=== PATIENT | male | born 1950 | race Caucasian/White ===

== ENCOUNTER 2022-04-20 08:17 | Observation (INO) | payer OTHER, SELFPAY ==
[2022-04-20] VITALS (13 sets, daily range): BP systolic 125–172; BP diastolic 60–86; PULSE 68–91; RESP 13–24; TEMP 36.2–36.7; O2SAT 94–98; BMI 30.4
[2022-04-20] MEDS: diphenhydrAMINE 50 MG/ML VIAL IV (08:25)
[2022-04-20] MEDS: methylPREDNISolone 125 MG/2 ML VIAL IV (08:25)
[2022-04-20] MEDS: EPINEPHrine 1 MG/ML 0.5 MG IM ×2 (08:25→09:44)
--- NOTE | 2022-04-20 08:39 | ED_ITS ---
HPI - Allergic Reaction General Chief complaint: Allergic Reaction Stated complaint: allergic reaction /swollen throat Time Seen by Provider: 04/20/22 08:36 Source: patient and family Mode of arrival: Ambulatory History of Present Illness HPI narrative: Patient is a 72-year-old male with no past medical history presenting today with allergic reaction. He says last night he felt like his vocal cords were swollen had a hard time breathing and came into the ED this morning. His lips are swollen tongue is not swollen. He feels like his voice is muffled. He does not have a rash not on any Zackary inhibitors. Patient states that this happened to him earlier this month he went to a walk-in clinic on April 08. He was previously started on azithromycin for a chest cold so he thought that might be the cause of his allergic reaction. He was given epi prednisone famotidine his antibiotic was changed to doxycycline. He finished all medications yesterday and had this reaction last night. Related Data Home Medications Medication Instructions Recorded Confirmed Adult Multivitamin with Iron 1 tab PO DAILY 04/20/22 04/20/22 aspirin 81 mg tablet 81 mg PO DAILY 04/20/22 04/20/22 coenzyme Q10 100 mg-vitamin E 20 1 cap PO DAILY 04/20/22 04/20/22 mg-vitamin E mixed 15 mg capsule lansoprazole 30 mg capsule,delayed 30 mg PO DAILY 04/20/22 04/20/22 release terazosin 2 mg capsule 4 mg PO BEDTIME 04/20/22 04/20/22 Allergies Allergy/AdvReac Type Severity Reaction Status Date / Time azithromycin Allergy Severe Swelling Verified 04/20/22 09:17 of Lip/Tongue/Throat lisinopril Allergy Verified 04/20/22 17:25 Review of Systems Review of Systems Narrative: GENERAL: Denies chills, fatigue, malaise, fever, sweats, travel HEENT: See HPI RESPIRATORY: Denies dyspnea, cough, wheezing, hemoptysis, sputum. CARDIOVASCULAR: Denies chest pain, palpitations, orthopnea, edema GASTROINTESTINAL: Denies nausea, vomiting, abdominal pain, diarrhea, constipation, melena. : Denies dysuria, frequency, incontinence, hematuria, urinary retention, flank pain. MUSCULOSKELETAL: Denies weakness, joint pain, or bony pain SKIN: No rash, no erythema, no pruritus NEUROLOGIC: Denies weakness, dizziness, headache, numbness, change in speech, confusion PSYCHIATRIC: No concerning psychosocial issues. 12 point review of systems is negative except for those stated above and HPI Patient History Social History household members: spouse Smoking Status: Never smoker Exam Initial Vital Signs Initial Vital Signs: Vital Signs Temperature 98.1 F 04/20/22 08:27 Pulse Rate 88 04/20/22 08:27 Respiratory Rate 20 04/20/22 08:27 Blood Pressure 139/80 04/20/22 08:27 Pulse Oximetry 95 04/20/22 08:27 Oxygen Delivery Method 04/20/22 08:27 GENERAL: Alert pleasant 72-year-old male mild distress HEENT: Head atraumatic,EOMI, pupils reactive, face symmetric, lip swollen PHARYNX: Muffled voice no uvula swelling no hard palate swelling no uvula deviation airway patent managing own secretions CARDIOVASCULAR: Regular rate and rhythm without murmurs, rubs or gallops. RESPIRATORY: Breath sounds equal bilaterally, no wheezes rales or rhonchi. ABDOMEN: Soft, nontender. Normoactive bowel sounds all 4 quadrants. No guarding or rebound. EXTREMITIES: Normal range of motion, no clubbing or edema. Neurovascularly intact NEUROLOGICAL: Alert and oriented x4. SKIN: Warm, dry, no laceration, no petechiae, no rashes or lesions. Course Orders Ordered: ED Orders 04/20/22 13:26 COVID19 -Nasal RAPID/Pre-Proc Stat Acetaminophen (Acetaminophen 325 Mg Tablet) 650 mg PO Q6HR PRN PRN Reason: Fever/Mild Pain (1-3) Diphenhydramine HCl (Diphenhydramine 50 Mg/Ml Vial) 50 mg IV Q6HR PRN PRN Reason: Angioedema Discontinued Medications Diphenhydramine HCl (Diphenhydramine 50 Mg/Ml Vial) 50 mg IV NOW ONE Stop: 04/20/22 08:32 Last Admin: 04/20/22 08:25 Dose: 50 mg Documented By: TODD Epinephrine HCl (Epinephrine 1 Mg/Ml) 0.5 mg IM NOW ONE Stop: 04/20/22 08:36 Last Admin: 04/20/22 08:25 Dose: 0.5 mg Documented By: TODD Epinephrine HCl (Epinephrine 1 Mg/Ml) 0.5 mg IM NOW ONE Stop: 04/20/22 09:22 Last Admin: 04/20/22 09:44 Dose: 0.5 mg Documented By: TODD Famotidine (Famotidine 20 Mg/2 Ml Vial) 20 mg IV NOW UMA Famotidine (Famotidine 20 Mg/2 Ml Vial) 20 mg IV NOW ONE Stop: 04/20/22 08:53 Last Admin: 04/20/22 08:53 Dose: 20 mg Documented By: TODD Tranexamic Acid 1,000 mg/ (Sodium Chloride) 100 mls @ 200 mls/hr IV NOW ONE Stop: 04/20/22 12:39 Last Infusion: 04/20/22 13:11 Dose: 0 mls/hr Documented By: Admin: 04/20/22 12:25 Dose: 200 mls/hr Documented By: TODD Methylprednisolone (Methylprednisolone 125 Mg/2 Ml Vial) 125 mg IV NOW ONE Stop: 04/20/22 08:32 Last Admin: 04/20/22 08:25 Dose: 125 mg Documented By: TODD Vital Signs Vital signs: Vital Signs - 8 hr 04/20/22 10:30 04/20/22 10:30 04/20/22 11:00 Pulse Rate 91 H Respiratory Rate 24 Blood Pressure 152/70 H 147/65 H Pulse Oximetry 95 04/20/22 11:00 04/20/22 11:30 04/20/22 11:30 Pulse Rate 78 77 Respiratory Rate 13 13 Blood Pressure 148/69 H Pulse Oximetry 94 94 04/20/22 12:00 04/20/22 12:00 04/20/22 12:30 Pulse Rate 79 Respiratory Rate 17 Blood Pressure 152/74 H 158/80 H Pulse Oximetry 95 04/20/22 12:30 Pulse Rate 81 Respiratory Rate 18 Blood Pressure Pulse Oximetry 94 MDM - Allergic Reaction Lab Data Result diagrams: 04/20/22 08:22 04/20/22 08:22 Labs: Lab Results 04/20/22 04/20/22 Range/Units 08:22 08:22 WBC 7.0 (4.5-11.0) X10^3/uL RBC 4.73 (4.5-5.9) X10^6/uL Hgb 14.4 (13.5-17.5) g/dL Hct 42.0 (41-53) % MCV 88.8 (80-100) fL MCH 30.4 (26-34) PG MCHC 34.2 (30-36) % RDW 13.1 (11.6-14.8) % Plt Count 208 (150-400) X10^3/uL Neut % (Auto) 53.6 (50-75) % Lymph % (Auto) 31.2 (25-40) % [place] % (Auto) 9.4 (3-14) % Eos % (Auto) 5.2 H (2-4) % Baso % (Auto) 0.6 (0-2) % Neut # (Auto) 3800 (1574-4998) /uL Lymph # (Auto) 2200 (7128-1399) /uL [place] # (Auto) 700 (0-900) /uL Eos # (Auto) 400 (0-450) /uL Baso # (Auto) 0 (0-100) /uL Sodium 138 (137-145) mmol/L Potassium 4.3 (3.4-5.1) mmol/L Chloride 106 (98-107) mmol/L Carbon Dioxide 26 (22-32) mmol/L BUN 15 (9-20) mg/dL Creatinine 0.88 (0.66-1.25) mg/dL Estimated GFR > 60 (>60) mL/min BUN/Creatinine Ratio 17.0 (6-22) Glucose 112 H (80-110) mg/dL Calcium 8.8 (8.4-10.2) mg/dL Total Bilirubin 0.8 (0.2-1.3) mg/dL AST 28 (17-59) IU/L ALT 35 (<50) IU/L Alkaline Phosphatase 55 (38-126) U/L Total Protein 7.0 (6.3-8.2) g/dL Albumin 3.9 (3.5-5.0) g/dL Globulin 3.1 (1.7-4.1) g/dL Albumin/Globulin Ratio 1.3 (1.0-2.8) MDM Narrative Medical decision making narrative: Patient does have muffled voice swollen lips previous anaphylactic reaction. He was treated for anaphylaxis with IM epi Solu-Medrol Benadryl and Pepcid. He had some improvement after 45 minutes but still having a little bit of a muffled v oice. No difficulty with secretions. He is given a 2nd dose of epinephrine which does seem to help his voice. He continues to have no other symptoms. Patient re-evaluated voice again sounds muffled but lips and tongue look okay. Concern for underlying angioedema seems to be waxing and waning. He is given a dose of TXA which again seems to be help. At this time patient needs to be admitted and monitored. Dr. Smith accepts patient Discharge Plan Departure Patient Disposition: Admitted as Observation Clinical Impression: Angioedema Admit Date/Time: 04/20/22 13:03 Admit Provider: Jagdish Smith
[2022-04-20] MEDS: FAMOTIDINE 20 MG/2 ML VIAL IV (08:53)
[2022-04-20] MEDS: TRANEXAMIC ACID 1,000 MG in SODIUM CHLORIDE 0.9% 100 ML 200 MG IV (12:25)
[2022-04-20 13:00] LABS: Add Manual Diff / Slide Review NO; Basophils Absolute Auto 0 /uL (0-100); Basophils Percent Auto 0.6 % (0-2); Eosinophils Absolute Auto 400 /uL (0-450); Eosinophils Percent Auto 5.2 % (2-4); Hemoglobin 14.4 g/dL (13.5-17.5); Lymphocytes Absolute Auto 2200 /uL (1100-4500); Lymphocytes Percent Auto 31.2 % (25-40); Mean Corpuscular HGB Conc 34.2 % (30-36); Mean Corpuscular Hemoglobin 30.4 PG (26-34); Mean Corpuscular Volume 88.8 fL (80-100); Monocytes Absolute Auto 700 /uL (0-900); Monocytes Percent Auto 9.4 % (3-14); Neutrophils Absolute Auto 3800 /uL (1500-7000); Neutrophils Percent Auto 53.6 % (50-75); Platelet Count 208 X10^3/uL (150-400); Red Blood Cell Count 4.73 X10^6/uL (4.5-5.9); Red Cell Distribution Width 13.1 % (11.6-14.8)
[2022-04-20 13:05] LABS: Alanine Aminotransferase 35 IU/L (<50); Albumin 3.9 g/dL (3.5-5.0); Albumin Globulin Ratio 1.3 (1.0-2.8); Alkaline Phosphatase 55 U/L (38-126); Aspartate Aminotransferase 28 IU/L (17-59); Bilirubin Total 0.8 mg/dL (0.2-1.3); Blood Urea Nitrogen 15 mg/dL (9-20); Calcium 8.8 mg/dL (8.4-10.2); Carbon Dioxide 26 mmol/L (22-32); Chloride 106 mmol/L (98-107); Estimated Glomerular Filt Rate > 60 mL/min (>60); Globulin 3.1 g/dL (1.7-4.1); Glucose 112 mg/dL (80-110); HEMOLYSIS < 15 (0-50); Potassium 4.3 mmol/L (3.4-5.1); Sodium 138 mmol/L (137-145)
--- NOTE | 2022-04-20 13:52 | PM.HP.1 ---
History of Present Illness History of Present Illness Chief complaint: allergic reaction /swollen throat Narrative: Darien Solomon is a 72yo M with PMH of GERD and BPH who presents with angioedema. He is visiting from [place] on a camping trip. About 3 weeks ago developed a dry cough so went to who prescribed po azithromycin and albuterol inhaler. Three days into taking the azithro he developed acute onset swelling of lips, tongue and around mouth and jaw, and throat. Did not compromise his airway. Had only used the inhaler sparingly with the azithro. Went back to who put him on doxy, prednisone and joyce and gave him an epi shot. His swelling improved and he finished the meds after a week. Two days after finishing he again developed acute onset swelling just like before so he came to the ED. In in the ED he received IV steroids, benadryl, transexemic acid and epi. He denies eating any shellfish. Does not take and has never taken RON inhibitors. No family history of angioedema. Denies any other triggers he can think of. No history of asthma. Denies CP, SOB, wheezing, NV, abd pain, or diarrhea. Patient History Comment: GERD and BPH Family & Social History Safety & Behavioral: Feels Safe in Current Yes Environment Meds Home Medications and Allergies Home Medications Medication Instructions Recorded Confirmed Type Adult Multivitamin with Iron 1 tab PO DAILY 04/20/22 04/20/22 History aspirin 81 mg tablet 81 mg PO DAILY 04/20/22 04/20/22 History coenzyme Q10 100 mg-vitamin E 20 1 cap PO DAILY 04/20/22 04/20/22 History mg-vitamin E mixed 15 mg capsule lansoprazole 30 mg capsule,delayed 30 mg PO DAILY 04/20/22 04/20/22 History release terazosin 2 mg capsule 4 mg PO BEDTIME 04/20/22 04/20/22 History Allergies Allergy/AdvReac Type Severity Reaction Status Date / Time azithromycin Allergy Severe Swelling Verified 04/20/22 09:17 of Lip/Tongue/Throat RON Inhibitors AdvReac Verified 04/20/22 18:38 Review of Systems Review of Systems Narrative: All other systems reviewed with the patient and are negative unless otherwise stated. Exam Vital Signs (past 8 hours): - 04/20/22 08:27 04/20/22 08:52 04/20/22 09:00 Temperature 98.1 F Pulse Rate 88 68 Respiratory Rate 20 22 Blood Pressure 139/80 172/80 H 166/73 H Pulse Oximetry 95 95 Oxygen Delivery Method Room Air 04/20/22 09:00 04/20/22 09:30 04/20/22 09:30 Temperature Pulse Rate 75 75 Respiratory Rate 21 22 Blood Pressure 160/69 H Pulse Oximetry 96 96 Oxygen Delivery Method 04/20/22 10:00 04/20/22 10:00 04/20/22 10:30 Temperature Pulse Rate 77 Respiratory Rate 15 Blood Pressure 145/66 H 152/70 H Pulse Oximetry 95 Oxygen Delivery Method 04/20/22 10:30 04/20/22 11:00 04/20/22 11:00 Temperature Pulse Rate 91 H 78 Respiratory Rate 24 13 Blood Pressure 147/65 H Pulse Oximetry 95 94 Oxygen Delivery Method 04/20/22 11:30 04/20/22 11:30 04/20/22 12:00 Temperature Pulse Rate 77 Respiratory Rate 13 Blood Pressure 148/69 H 152/74 H Pulse Oximetry 94 Oxygen Delivery Method 04/20/22 12:00 04/20/22 12:30 04/20/22 12:30 Temperature Pulse Rate 79 81 Respiratory Rate 17 18 Blood Pressure 158/80 H Pulse Oximetry 95 94 Oxygen Delivery Method Oxygen Delivery Method Room Air Narrative Exam Narrative: GEN: no acute distress HEENT: swollen lips, tongue mildly swollen, no airway stridor, PERRL NECK: trachea midline, no JVD CV: regular rate and rhythm, no murmurs PULM: clear bilaterally ABD: soft, nontender, nondistended, no organomegaly EXT: warm and well perfused with no edema NEURO: awake, alert, oriented, no focal deficits Objective Labs Result Diagrams: 04/20/22 08:22 04/20/22 08:22 Labs: Laboratory Results - last 24 hr 04/20/22 04/20/22 08:22 08:22 WBC 7.0 RBC 4.73 Hgb 14.4 Hct 42.0 MCV 88.8 MCH 30.4 MCHC 34.2 RDW 13.1 Plt Count 208 Neut % (Auto) 53.6 Lymph % (Auto) 31.2 [place] % (Auto) 9.4 Eos % (Auto) 5.2 H Baso % (Auto) 0.6 Neut # (Auto) 3800 Lymph # (Auto) 2200 [place] # (Auto) 700 Eos # (Auto) 400 Baso # (Auto) 0 Sodium 138 Potassium 4.3 Chloride 106 Carbon Dioxide 26 BUN 15 Creatinine 0.88 Estimated GFR > 60 BUN/Creatinine Ratio 17.0 Glucose 112 H Calcium 8.8 Total Bilirubin 0.8 AST 28 ALT 35 Alkaline Phosphatase 55 Total Protein 7.0 Albumin 3.9 Globulin 3.1 Albumin/Globulin Ratio 1.3 Assessment & Plan Assessment & Plan narrative: # acute angioedema -likely secondary to azithiromycin use as occured while taking it and azithro can last in system up to a week -avoid RON inhibitors -Benadryl IV and epi as needed for evidence of angioedema -check C1 esterase inhibitor function to rule out hereditary angioedema -azithro and RON inhibitors placed on allergy list # GERD, chronic -hold home omeprazole # BPH, chronic -hold home flomax Code status is full. COVID negative. DVT prophylaxis with SCDs as low risk. Proxy is daughter Anastacia. I have reviewed home meds and used all available resources to reconcile the home meds. Time Spent With Patient Critical Care time: I spent a total of [] minutes of critical care time on this patient's care today; this time is exclusive of procedural time.
[2022-04-20 14:02] LABS: COVID19 -Nasal RAPID Negative (Negative)
[2022-04-21 06:00] VITALS: BP 121/71; PULSE 65; RESP 18; TEMP 36.7; O2SAT 96
[2022-04-21 07:32] LABS: Add Manual Diff / Slide Review NO; Basophils Absolute Auto 0 /uL (0-100); Basophils Percent Auto 0.1 % (0-2); Eosinophils Absolute Auto 0 /uL (0-450); Eosinophils Percent Auto 0.2 % (2-4); Hematocrit 40.7 % (41-53); Hemoglobin 13.9 g/dL (13.5-17.5); Lymphocytes Absolute Auto 1700 /uL (1100-4500); Lymphocytes Percent Auto 13.6 % (25-40); Mean Corpuscular HGB Conc 34.2 % (30-36); Mean Corpuscular Hemoglobin 30.1 PG (26-34); Mean Corpuscular Volume 88.1 fL (80-100); Monocytes Absolute Auto 900 /uL (0-900); Monocytes Percent Auto 6.9 % (3-14); Neutrophils Absolute Auto 10000 /uL (1500-7000); Neutrophils Percent Auto 79.2 % (50-75); Platelet Count 225 X10^3/uL (150-400); Red Blood Cell Count 4.62 X10^6/uL (4.5-5.9); Red Cell Distribution Width 13.2 % (11.6-14.8); White Blood Cell Count 12.6 X10^3/uL (4.5-11.0)
[2022-04-21 07:41] LABS: Blood Urea Nitrogen 16 mg/dL (9-20); Carbon Dioxide 27 mmol/L (22-32); Chloride 104 mmol/L (98-107); Estimated Glomerular Filt Rate > 60 mL/min (>60); Glucose 130 mg/dL (80-110); HEMOLYSIS < 15 (0-50); Potassium 4.1 mmol/L (3.4-5.1); Sodium 135 mmol/L (137-145)
[2022-04-21 07:52] VITALS: BP 123/69; PULSE 65; RESP 18; TEMP 36.7; O2SAT 94
--- NOTE | 2022-04-21 08:49 | P.DS_ITS ---
History of Present Illness History of Present Illness Date Patient Seen: 04/21/22 Chief complaint: allergic reaction /swollen throat Narrative: Per Dr. Smith, Darien Solomon is a 72yo M with PMH of GERD and BPH who presents with angioedema. He is visiting from [place] on a camping trip. About 3 weeks ago developed a dry cough so went to who prescribed po azithromycin and albuterol inhaler. Three days into taking the azithro he developed acute onset swelling of lips, tongue and around mouth and jaw, and throat. Did not compromise his airway. Had only used the inhaler sparingly with the azithro. Went back to who put him on doxy, prednisone and joyce and gave him an epi shot. His swelling improved and he finished the meds after a week. Two days after finishing he again developed acute onset swelling just like before so he came to the ED. In in the ED he received IV steroids, benadryl, transexemic acid and epi. He denies eating any shellfish. Does not take and has never taken RON inhibitors. No family history of angioedema. Denies any other triggers he can think of. No history of asthma. Denies CP, SOB, wheezing, NV, abd pain, or diarrhea. Discharge Providers Provider Date of admission: 04/20/22 13:03 Discharge Date: 04/21/22 Primary care physician: Doctor Marsha MD Discharge provider: Anil Watson DO Summary Hospital Course Discharge Diagnosis: # acute angioedema # GERD, chronic # BPH, chronic Hospital Course: This is a 72-year-old male with a past medical history of BPH and GERD with recent diagnosis of angioedema who presented with worsening after cessation of his steroids. He was restarted on steroid therapy and was given epi And Benadryl as well. he had improvement in his symptoms the following morning without worsening of his symptoms. He was discharged on 1 week taper of prednisone, given a prescription for an EpiPen, and also given a prescription fo r a couple doses of 40 mg of prednisone should his swelling recur. I recommend follow-up with his primary care provider for further evaluation of his angioedema. C1 esterase function was also sent, though this result is still pending at the time of discharge. Exam Vital Signs (past 8 hours): - 04/21/22 06:00 04/21/22 07:52 Temperature 98.0 F 98.0 F Pulse Rate 65 65 Respiratory Rate 18 18 Blood Pressure 121/71 123/69 Pulse Oximetry 96 94 Oxygen Flow Rate 0 0 Oxygen Delivery Method Room Air Oxygen Flow Rate 0 Narrative Exam Narrative: GEN: no acute distress HEENT: facial swelling improved, tongue mildly swollen, no airway compromise NECK: trachea midline, no JVD CV: regular rate and rhythm, no murmurs PULM: clear bilaterally ABD: soft, nontender, nondistended, no organomegaly EXT: warm and well perfused with no edema NEURO: awake, alert, oriented, no focal deficits Objective Labs Result Diagrams: 04/21/22 06:57 04/21/22 06:57 Labs: Laboratory Results - last 24 hr 04/20/22 04/20/22 04/20/22 08:22 08:22 13:26 WBC 7.0 RBC 4.73 Hgb 14.4 Hct 42.0 MCV 88.8 MCH 30.4 MCHC 34.2 RDW 13.1 Plt Count 208 Neut % (Auto) 53.6 Lymph % (Auto) 31.2 [place] % (Auto) 9.4 Eos % (Auto) 5.2 H Baso % (Auto) 0.6 Neut # (Auto) 3800 Lymph # (Auto) 2200 [place] # (Auto) 700 Eos # (Auto) 400 Baso # (Auto) 0 Sodium 138 Potassium 4.3 Chloride 106 Carbon Dioxide 26 BUN 15 Creatinine 0.88 Estimated GFR > 60 BUN/Creatinine Ratio 17.0 Glucose 112 H Calcium 8.8 Total Bilirubin 0.8 AST 28 ALT 35 Alkaline Phosphatase 55 Total Protein 7.0 Albumin 3.9 Globulin 3.1 Albumin/Globulin Ratio 1.3 SARS-CoV-2 (PCR) Negative 04/21/22 04/21/22 06:57 06:57 WBC 12.6 H D RBC 4.62 Hgb 13.9 Hct 40.7 L MCV 88.1 MCH 30.1 MCHC 34.2 RDW 13.2 Plt Count 225 Neut % (Auto) 79.2 H D Lymph % (Auto) 13.6 L [place] % (Auto) 6.9 Eos % (Auto) 0.2 L Baso % (Auto) 0.1 Neut # (Auto) 11903 H Lymph # (Auto) 1700 [place] # (Auto) 900 Eos # (Auto) 0 Baso # (Auto) 0 Sodium 135 L Potassium 4.1 Chloride 104 Carbon Dioxide 27 BUN 16 Creatinine 0.89 Estimated GFR > 60 BUN/Creatinine Ratio 18.0 Glucose 130 H Calcium 9.0 Total Bilirubin AST ALT Alkaline Phosphatase Total Protein Albumin Globulin Albumin/Globulin Ratio SARS-CoV-2 (PCR) [facility] Social History household members: spouse Smoking Status: Never smoker Discharge Plan Discharge Plan Patient Disposition: Home Provider Discharge Comment: You were admitted to the hospital with swelling of your tongue and mouth. This improved with medications. For this episode, please continue steroid taper as prescribed for 6 additional days. For prevention: I recommend you find an over the counter antihistamine (non- drowsy like zyrtec, joyce, or claritin) and continue this indefinitely until your cause is known. Follow up with PCP for continued evaluation as to the cause of your swelling. For future attacks: Take 1 40 mg prednisone pill as needed for swelling (will send 2 additional doses as a separate prescription), and 25-50 mg of benadryl at the same time once you feel swelling. If you have trouble breathing, take epi pen and seek medical attention. Discharge orders & Medications Prescriptions: New prednisone 10 mg tablet See Rx Instructions .ROUTE .COMPLEX Qty: 15 0RF Rx Instructions: Take 40 mg daily for 2 days, 20 mg daily for 2 days, then 10 mg daily for 3 days then stop. prednisone 20 mg tablet 40 mg PO DAILY PRN (Reason: angioedem) 30 Days Qty: 6 0RF epinephrine 0.3 mg/0.3 mL auto-injector 0.3 mg IM Q5-15M PRN (Reason: anaphylaxis) Qty: 2 0RF Rx Instructions: do not exceed 3 doses per episode prednisone 10 mg tablet See Rx Instructions .ROUTE .COMPLEX Qty: 15 0RF Rx Instructions: Take 40 mg daily for 2 days, 20 mg daily for 2 days, then 10 mg daily for 3 days then stop. prednisone 20 mg tablet 40 mg PO DAILY PRN (Reason: angioedema) 30 Days Qty: 6 0RF epinephrine 0.3 mg/0.3 mL auto-injector 0.3 mg IM Q5-15M PRN (Reason: anaphylaxis) Qty: 2 0RF Rx Instructions: do not exceed 3 doses per episode Continued lansoprazole 30 mg capsule,delayed release(DR/EC) 30 mg PO DAILY terazosin 2 mg capsule 4 mg PO BEDTIME Adult Multivitamin with Iron 1 tab PO DAILY aspirin 81 mg Tablet 81 mg PO DAILY coenzyme Q10-vit E-vit E mixed 100-20-15 mg Capsule 1 cap PO DAILY Follow up/Referrals: Marsha,, [Primary Care Provider] - Diet/Activity/Treatments Diet: Diet as Tolerated Activity: As tolerated Visit Report/Discharge Packet Instructions: DI for Anaphylaxis Discharge Data Primary Care Provider: Doctor Marsha Attending Provider: Jagdish Smith
[2022-04-21] MEDS: predniSONE 20 MG TABLET 40 MG PO (09:41)
--- NOTE | 2022-04-21 14:42 | CM.IDA ---
Initial DCP Assessment Note Pt is a 72 yo male, resident of [place], [place], visiting from [place] on a camping trip who presents with angioedema, likely an allergic reaction to azithiromycin PCP: Not Listed Payer: EBONY Barragan Reviewed chart, pt discussed in multidisciplinary rounds this morning. Patient discharged home today, symptoms improved No barriers identified at this time to patient's safe discharge home w/family to assist; close outpatient f/u recommended. MORELIA Guzmán
[2022-04-26 13:08] LABS: C1 Esterase Inhibitor 31 mg/dL (21-39)
[2022-04-27 15:47] LABS: C1 Esterase Inhibitor, Func 88 (.)
== END 2022-04-21 10:25 | disposition home or self-care (01) ==
LOC: ED 13:00 → AC 13:03
PROVIDERS: Admitting Provider Student in an Organized Health Care Education/Training Program; Emergency Provider Emergency Medicine; Referring Provider Emergency Medicine; Visit Provider Student in an Organized Health Care Education/Training Program
DX: T78.3XXA Angioneurotic edema, initial encounter (principal); K21.9 Gastro-esophageal reflux disease without esophagitis; N40.0 Benign prostatic hyperplasia without lower urinary tract symptoms; Z20.822 Contact with and (suspected) exposure to COVID-19
CPT/HCPCS: 36415; 80048; 80053; 85025; 86160; 86161; 87635; 96365; 96372; 96375; 99284; C9803; G0378; J0171; J1200; J2930